=== PATIENT | male | born 1990 | race Caucasian/White ===

== ENCOUNTER → 2018-01-05 | Outpatient (CLI) | payer BC ==
[~2018-01-05] MED LIST: CLX20 PO
[2018-01-05 15:14] LABS: INFLUENZA A PCR POS for Influ A (NEG); INFLUENZA B PCR Neg for Influ B (NEG)
== END | disposition home or self-care (01) ==
LOC: C.LAB 13:05
DX: R50.9 Fever, unspecified (principal); R05 Cough